=== PATIENT | male | born 1985 | race Caucasian/White ===

== ENCOUNTER 2020-01-10 15:03 | Emergency (ER) | payer OTHER, SELFPAY ==
[2020-01-10 15:21] VITALS: BP 142/104; PULSE 90; RESP 14; TEMP 36.6; O2SAT 98
--- NOTE | 2020-01-10 15:35 | W.ED.GENAD ---
Discharge Plan Disposition Patient Disposition: HOME Condition: Stable Discharge Details Clinical Impression: Laceration of finger of left hand with damage to nail Primary Care Provider: None,None ED Provider: Pradeep Blas Discharge Instructions Instructions: Finger Laceration (ED), Skin Adhesive Care (ED) Additional Instructions: Please contact occupational medicine to arrange follow-up. Return to the ER for any worsening or new concerning symptoms. Stand Alone Forms: Work Release Referrals: Occupational Medicine [Outside] Discharge Data Discharge Date/Time-TO BE ENTERED AT DEPARTURE: 01/10/20 16:19 Medical Decision Making 34-year-old male with left first digit accidental laceration from knife. Wound is bleeding. [place] applied, wound cleansed with sterile solution and repaired with skin adhesive. Hemostasis achieved. Tetanus immunization given. Patient instructed to follow-up with his work and occupational medicine. HPI General Mode of arrival: ambulatory. Date/Time Provider Initiated Documentation: 01/10/20 15:35. Limitations to Documentation: no limitations. Information obtained by: patient. HPI Narrative: 34-year-old male presents with chief complaint of laceration. Patient notes she lacerated his left thumb with a knife while cutting peppers just prior to arrival. Wound is been bleeding heavily. No modifiers. No other injury. Unknown tetanus status. General Stated Complaint: Laceration AIDE: 3 Review of Systems Integumentary/Breasts Skin/Breast: Reports as per HPI [facility] Social History Smoking/Tobacco Use Status: Current every day Alcohol Intake: current Drug use: Daily Substance use type: marijuana Do you feel safe at home: Yes Do you feel safe in your relationship?: Yes Exam Const General: cooperative and no acute distress Cardio Rate: regular rate and not tachycardic Rhythm: regular rhythm Skin Trauma: laceration (1 cm left distal thumb involving distal nail and nailbed, bleeding) Procedures Laceration Laceration 1: Site: hand Side (If applicable): left Size (cm): 1 Description: other (avulsion) Depth: simple, single layer Pre-repair: wound explored and irrigated extensively Skin layer closed with: other (skin adhesive)
--- NOTE | 2020-01-10 20:04 | NUR.NOTE ---
Referral to care management to establish pcpNursing Note:
--- NOTE | 2020-01-11 15:09 | PDOC.ERCMPRO ---
- If Service Date Differs Date of service: 01/11/20 Time of Service: 15:09 Care Management Progress Note Keyshawn is seen in the ED for a laceration to his finger. At the request of ED provider, SONAL coordinates a referral to Serina Coles MD, on-call provider, of [facility], to assist Keyshawn in establishing care with a PCP. Keyshawn is also referred to the community marketing coordinator at [facility], as he appears to be without health insurance. SONAL additionally coordinates a referral to Occupational Medicine, as the laceration was a work-related injury.
== END 2020-01-10 16:19 | disposition home or self-care (01) ==
PROVIDERS: Emergency Provider Student in an Organized Health Care Education/Training Program
DX: S61.112A Laceration without foreign body of left thumb with damage to nail, initial encounter (principal); W26.0XXA Contact with knife, initial encounter; Y93.G1 Activity, food preparation and clean up
CPT/HCPCS: 12001; 90471

== ENCOUNTER 2020-05-06 06:19 | Emergency (ER) | payer SELFPAY ==
--- NOTE | 2020-05-06 06:15 | DI.RAD_ITS ---
EXAM: XR SHOULDER LT COMPLETE 2+V CLINICAL HISTORY: pain s/p fall. TECHNIQUE: 2D digital imaging was performed. COMPARISON: CR,XR XR HUMERUS LT from 05/06/2020 CR,XR XR HUMERUS LT from 05/06/2020 FINDINGS: BONES: There is a nondisplaced fracture extending through the surgical neck of the humerus. There is comminution at the greater tuberosity is slightly displaced. No bony destructive lesion is seen. No additional fractures are seen distally in the humerus or elbow. No rib fractures are identified. JOINTS: No dislocation present. The AC joint is not widened. There is mild widening of the glenohum eral joint likely secondary to hemarthrosis. SOFT TISSUE: Normal. No left pneumothorax. IMPRESSION: Humeral head fracture with comminution at the greater tuberosity. DATA REPOSITORY: RADIATION DOSE DELIVERED:
[2020-05-06 06:23] VITALS: BP 148/96; PULSE 105; RESP 16; TEMP 35.7; O2SAT 97
--- NOTE | 2020-05-06 06:26 | ED.GENADUL_ITS ---
Discharge Plan Disposition Patient Disposition: HOME Condition: Stable Discharge Details Clinical Impression: Contusion of arm, left, Contusion of left shoulder, Fracture of left shoulder Primary Care Provider: None,None ED Provider: Ravindra Bledsoe Home Meds and New Rx's Prescriptions: Continued multivitamin with minerals [Men's One Daily] Tablet 1 tab PO DAILY RF: 0 omeprazole 20 mg Tablet,Delayed Release (Dr/Ec) 20 mg PO DAILY RF: 0 Discharge Instructions Additional Instructions: you can take 1000mg tylenol and 600mg ibuprofen every 6 hours for pain as needed call orthopedics for an appointment return to the emergency department for severe worsening pain or new pain such as chest pain or difficulty breathing Referrals: Rojelio Quinn MD [ [facility] STAFF PHYSICIAN] - Medical Decision Making 34 yo male who denies chronic medical problems states last night he slipped on ice in his driveway and landed on his left shoulder. Denies hitting head or loc and only has pain in mid left humerus and left shoulder. No headache, neck pain, chest pain, abdominal pain or leg pain or right arm pain and has no midline spine tenderness with full rom of the neck without pain. Has pain over left lateral shoulder and is able to move it to about 90 degrees then limited by pain. Also has mid humerus tenderness without palpable deformity. Full rom of the hand, wrist and elbow with no pain and intact pulses and sensation. Will obtain xrays to evaluate for fx. Pt stable and on my read of the xray has fracture of the greater tuberosity with no significant displacement. If vrad agrees will place in sling and have him f/u with orthopedics. No deficits of sensation so doubt nerve injury. He declines any prescription pain medication Differential Diagnosis Differential Diagnosis: contusion, sprain, strain, fx Imaging Data Radiologic Study: Attestation: I personally reviewed and interpreted this imaging study as follows: Imaging: X-Ray My impression: left shoulder xray fracture Radiologic Study #2: Attestation: I personally reviewed and interpreted this imaging study as follows: Imaging: X-Ray My impression: humerus xray left shoulder fracture HPI General Mode of arrival: ambulatory . Date/Time Provider Initiated Documentation: 05/06/20 06:25 . Limitations to Documentation: no limitations . Information obtained by: patient . History of Present Illness 34 year old M presents to the emergency department with the chief complaint of left arm pain, described as moderate, and is localized to the left and upper extremity. Patient reports no radiation. Patient started experiencing this day(s) (1) and it has been constant. Rest improves symptom(s), Movement worsens symptoms . Patient notes no other symptoms.. Patient did receive the following treatments prior to arrival, none Related Data Home Medications Medication Instructions Recorded Confirmed multivitamin with minerals [Men's 1 tab PO DAILY 05/06/20 05/06/20 One Daily] omeprazole 20 mg PO DAILY 05/06/20 05/06/20 Allergies Allergy/AdvReac Type Severity Reaction Status Date / Time No Known Allergies Allergy Unverified 05/06/20 06:26 General Stated Complaint: Orthopedic AIDE: 4 Review of Systems All systems reviewed & are unremarkable except as noted in HPI and below Constitutional Constitutional: Denies chills and Denies fever(s) Cardiovascular Cardiovascular: Denies chest pain and Denies dyspnea Respiratory Respiratory: Denies cough and Denies dyspnea Gastrointestinal Gastrointestinal: Denies abdominal pain, Denies nausea and Denies vomiting [facility] Social History Smoking/Tobacco Use Status: Current every day Tobacco Type: cigarettes Smoking risk assessment performed?: Yes Alcohol Intake: current Alcohol Intake frequency: 0-2 drinks per day Drug use: Daily Substance use type: marijuana Do you feel safe at home: Yes Do you feel safe in your relationship?: Yes Exam Const General: no acute distress Orientation: alert HENME Head: normal to inspection Ears: external ears normal General nose exam: external nose normal Mouth: moist mucous membranes Eyes General: appearance normal, both eyes and all related structures Neck Neck: normal visual inspection Resp Effort & Inspection: normal respiratory effort and able to speak in complete sentences Cardio Rate: regular rate Skin General skin exam: no rashes or lesions noted Neuro General: patient alert and patient oriented x3 Extrem General: capillary refill normal Psych Mental Status: mental status grossly normal Course Vital Signs Vital signs: Vital Signs Temperature 35.7 C L 05/06/20 06:23 Pulse 105 H 05/06/20 06:23 Respiratory Rate 16 05/06/20 06:23 Blood Pressure 148/96 H 05/06/20 06:23 Pulse Oximetry 97 05/06/20 06:23 Temperature 35.7 C L 05/06/20 06:23 Temperature Source Skin 05/06/20 06:23 Pulse 105 H 05/06/20 06:23 Respiratory Rate 16 05/06/20 06:23 Blood Pressure 148/96 H 05/06/20 06:23 Blood Pressure Position Sitting 05/06/20 06:23 Pulse Oximetry 97 05/06/20 06:23 Oxygen Delivery Method Room Air 05/06/20 06:23 Oxygen Flow Rate 0 05/06/20 06:23 Pain Level 7 05/06/20 06:23
--- NOTE | 2020-05-06 07:04 | DI.VRAD_ITS ---
PROCEDURE INFORMATION: Exam: XR Left Humerus Exam date and time: 05/06/2020 6:26 AM Age: 34 years old Clinical indication: Injury or trauma; Blunt trauma (contusions or hematomas); Shoulder and arm, upper; Left; Injury date: 05/06/20; Injury details: Fall on shoulder, pain in upper arm TECHNIQUE: Imaging protocol: XR Left humerus Views: 2 or more views. COMPARISON: No relevant prior studies available. FINDINGS: Bones/joints: Fracture at the humeral neck/humeral head noted without significant angulation or displacement. Probable hemarthrosis associated. Soft tissues: Normal. IMPRESSION: Fracture at the humeral neck/humeral head noted without significant angulation or displacement. Probable hemarthrosis associated. Dictated and Authenticated by: Navdeep Huang MD. Ordering:CHALO Waite MD
--- NOTE | 2020-05-06 07:05 | DI.VRAD_ITS ---
PROCEDURE INFORMATION: Exam: XR Left Shoulder Exam date and time: 05/06/2020 6:26 AM Age: 34 years old Clinical indication: Injury or trauma; Blunt trauma (contusions or hematomas); Shoulder and arm, upper; Left; Injury date: 05/06/20; Injury details: Fall on shoulder, pain, lrom TECHNIQUE: Imaging protocol: XR Left shoulder. Views: 2 or more views. COMPARISON: No relevant prior studies available. FINDINGS: Bones/joints: Fracture of the humeral head noted with a cortical step-off at the greater tuberosity. No evidence for displacement or angulation. Increased acromial humeral distance likely reflects an associated hemarthrosis. Soft tissues: Normal. IMPRESSION: Fracture of the humeral head noted with a cortical step-off at the greater tuberosity. No evidence for displacement or angulation. Increased acromial humeral distance likely reflects an associated hemarthrosis. Dictated and Authenticated by: Navdeep Huang MD. Ordering:CHALO Waite MD
--- NOTE | 2020-05-06 07:16 | NUR.NOTE ---
Referral to Care Management to establish pcp and help with resources for insurance.Nursing Note:
--- NOTE | 2020-05-06 17:59 | PDOC.ERCMPRO ---
- If Service Date Differs Date of service: 05/06/20 Time of Service: 18:00 Care Management Progress Note Keyshawn is seen in the ED today for a fractured left shoulder and a left arm contusion. At the request of ED provider, SONAL coordinates a referral to Dr. Evans Ramos of [facility], on-call provider, to assist Keyshawn in obtaining a follow up appointment and in establishing care with a PCP. A referral is also made to [facility] to enlist their assistance in exploring insurance options with Keyshawn, as he is currently uninsured.
== END 2020-05-06 07:13 | disposition home or self-care (01) ==
LOC: ER 07:11
PROVIDERS: Emergency Provider Emergency Medicine
DX: S42.255A Nondisplaced fracture of greater tuberosity of left humerus, initial encounter for closed fracture (principal); S40.022A Contusion of left upper arm, initial encounter; W00.0XXA Fall on same level due to ice and snow, initial encounter
CPT/HCPCS: 23620; 73030; 73060

== ENCOUNTER 2020-05-13 10:47 | Outpatient (CLI) | payer SELFPAY ==
--- NOTE | 2020-05-13 08:16 | DI.RAD_ITS ---
EXAM: XR SHOULDER LT COMPLETE 2+V CLINICAL HISTORY: L prox humerus fx. TECHNIQUE: 2D digital imaging was performed. COMPARISON: CR,XR XR SHOULDER LT COMPLETE 2+V from 05/06/2020 FINDINGS: BONES: There has been no change in alignment of the proximal left humeral fracture since 05/06/2020. No new fracture or dislocation. No bony destructive lesion is seen. JOINTS: No dislocation present. SOFT TISSUE: Normal. IMPRESSION: Stable proximal left humeral fracture. DATA REPOSITORY: RADIATION DOSE DELIVERED:
== END 2020-05-13 10:48 | disposition home or self-care (01) ==
LOC: DIORS 10:48
PROVIDERS: Referring Provider Physician Assistant; Visit Provider Physician Assistant
DX: S42.292A Other displaced fracture of upper end of left humerus, initial encounter for closed fracture (principal)
CPT/HCPCS: 73030

== ENCOUNTER 2020-05-20 15:39 | Outpatient (CLI) | payer SELFPAY ==
--- NOTE | 2020-05-20 15:30 | DI.RAD_ITS ---
EXAM: XR SHOULDER LT COMPLETE 2+V CLINICAL HISTORY: f/u. TECHNIQUE: 2D digital imaging was performed. COMPARISON: No exams were available for comparison FINDINGS: BONES: There has been no change in alignment of the proximal left humeral fracture. No new fracture or dislocation is present. No bony destructive lesion is seen. JOINTS: No dislocation present. SOFT TISSUE: Normal. IMPRESSION: Stable proximal left humeral fracture. DATA REPOSITORY: RADIATION DOSE DELIVERED:
== END 2020-05-20 15:40 | disposition home or self-care (01) ==
LOC: DIORS 15:39
PROVIDERS: Referring Provider Student in an Organized Health Care Education/Training Program; Visit Provider Student in an Organized Health Care Education/Training Program
DX: S42.292A Other displaced fracture of upper end of left humerus, initial encounter for closed fracture (principal)
CPT/HCPCS: 73030

== ENCOUNTER 2020-06-18 14:25 | Outpatient (CLI) | payer SELFPAY ==
--- NOTE | 2020-06-18 13:15 | DI.RAD_ITS ---
EXAM: XR SHOULDER LT COMPLETE 2+V CLINICAL HISTORY: f/u. TECHNIQUE: 2D digital imaging was performed. COMPARISON: CR XR SHOULDER LT COMPLETE 2+V from 05/20/2020 FINDINGS: BONES: There is no change in alignment of the proximal humeral fracture. There is increased sclerosi s of the fracture suggesting interval healing. No new fracture or dislocation is seen. No bony dest ructive lesion is seen. JOINTS: No dislocation present. SOFT TISSUE: Normal. IMPRESSION: Stable healing proximal left humeral fracture. DATA REPOSITORY: RADIATION DOSE DELIVERED:
== END 2020-06-18 14:26 | disposition home or self-care (01) ==
LOC: DIORS 14:26
PROVIDERS: Visit Provider Student in an Organized Health Care Education/Training Program
DX: S42.292D Other displaced fracture of upper end of left humerus, subsequent encounter for fracture with routine healing (principal)
CPT/HCPCS: 73030